=== PATIENT | female | born 1970 | race Caucasian/White ===

== ENCOUNTER 2018-02-14 09:31 | Outpatient (CLI) | payer BC ==
--- NOTE | 2018-02-14 13:10 | MMO ---
BILATERAL SCREENING MAMMOGRAM: Comparison: 01-04-14, 01-25-14, 01-06-15, 02-24-15 Technique: CC and MLO views of both breasts are submitted for interpretation. This study is interpret ed with the assistance of computer aided detection. FINDINGS: Breasts are comprised of extremely dense fibroglandular tissue which limits the sensitivity of mammog rossy in the detection of underlying malignancy. Bilaterally, no suspicious dominant mass, architectural distortion, or suspicious calcifications. Celestino ign appearing calcifications are noted bilaterally. IMPRESSION: BIRADS category 2 - benign findings. RECOMMENDATION: Annual mammogram. POS: [facility]
== END 2018-02-14 09:32 | disposition home or self-care (01) ==
LOC: SCSMAMMO 09:31
PROVIDERS: ATTEND Family Medicine
DX: Z12.31 Encounter for screening mammogram for malignant neoplasm of breast (principal)
CPT/HCPCS: 77067

== ENCOUNTER 2018-05-01 10:37 | Outpatient (CLI) | payer BC ==
--- NOTE | 2018-05-01 15:33 | CT ---
CT ABDOMEN AND PELVIS WITH CONTRAST: Multiple axial tomograms are obtained through the abdomen and pelvis with IV enhancement. INDICATION: Hernia. Palpable mass described by the patient. COMPARISON: There are no comparison studies. FINDINGS: Lung bases clear. The liver, spleen, pancreas unremarkable. Stomach and duodenum unremarkable. Adrenal glands normal. Kidneys unremarkable. There is a 1 cm cyst superior pole of the right kidney. Small bowel loops appear normal. Appendix appears normal. Contrast with stool seen throughout the c olon. The uterus is enlarged and very heterogeneous. There are several low attenuation mass-like areas wit hin the uterine fundus suggesting fibroids. The largest measures up to 4 cm diameter. Evidence of b ilateral tubal ligation. Aorta normal caliber. No adenopathy apparent. There is no evidence of anterior abdominal wall hernia identified. No anterior subcutaneous mass les ion identified. IMPRESSION: 1. Prominent stool throughout the colon suggests constipation. 2. Enlarged fibroid uterus. 3. No evidence of anterior abdominal wall hernia. POS: [facility]
== END 2018-05-01 10:38 | disposition home or self-care (01) ==
LOC: SCSCT 10:37
PROVIDERS: ATTEND Surgery
DX: K43.9 Ventral hernia without obstruction or gangrene (principal); D25.9 Leiomyoma of uterus, unspecified
CPT/HCPCS: 74177

== ENCOUNTER 2019-02-16 09:45 | Outpatient (CLI) | payer BC ==
--- NOTE | 2019-02-16 10:52 | MMO ---
Bilateral MAMMO Bilat Screen [facility]. CLINICAL HISTORY: Patient is 48 years old and is seen for screening. The patient has no family history of breast cancer. The patient has no personal history of cancer. VIEWS: The views performed were: bilateral craniocaudal with tomosynthesis and bilateral mediolateral oblique with tomosynthesis. FILMS COMPARED: The present examination has been compared to prior imaging studies performed at [facility] on 01/04/2014 and 02/14/2018, and at [facility] on 01/06/2015. This study has been interpreted with the assistance of computer-aided detection. MAMMOGRAM FINDINGS: The breasts are extremely dense, which may lower the sensitivity of mammography. Finding 1: There are stable benign appearing calcifications seen in both breasts. Finding 2: There is a stable mass seen in the sub-areolar region of the right breast. There are no suspicious masses, suspicious calcifications, or new areas of architectural distortion. IMPRESSION: THERE IS NO MAMMOGRAPHIC EVIDENCE OF MALIGNANCY. A ROUTINE FOLLOW-UP MAMMOGRAM IN 1 YEAR IS RECOMMENDED. THE RESULTS OF THIS EXAM WERE SENT TO THE PATIENT. ACR BI-RADS Category 2 - Benign finding MAMMOGRAPHY NOTE: 1. A negative mammogram report should not delay a biopsy if a dominant of clinically suspicious mass is present. 2. Approximately 10% to 15% of breast cancers are not detected by mammography. 3. Adenosis and dense breasts may obscure an underlying neoplasm. Reported by: EDMUND COBURN MD Electonically Signed: [id number]
== END 2019-02-16 09:46 | disposition home or self-care (01) ==
LOC: BICMAMMO 09:45
PROVIDERS: ATTEND Family Medicine
DX: Z12.31 Encounter for screening mammogram for malignant neoplasm of breast (principal)
CPT/HCPCS: 77063; 77067

== ENCOUNTER 2020-02-26 13:13 | Outpatient (CLI) | payer BC ==
--- NOTE | 2020-02-26 14:35 | ULT ---
EXAM: US Thyroid STANDARD PROVIDED CLINICAL HISTORY: Hyperparathyroidism COMPARISON: None FINDINGS: Right lobe of thyroid gland measures 4.4 cm x 1.7 cm x 1.3 cm. 0.9 cm circumscribed heterogeneous nodule is seen in the midportion right lobe of the thyroid gland. 0.6 cm circumscribed heterogeneous nodule inferior pole right lobe of thyroid gland. Left lobe of thyroid gland measures 4.4 cm x 1.6 cm x 1.4 cm. 1.3 cm circumscribed hypoechoic nodule superior pole left lobe of the thyroid gland 0.6 cm isoechoic circumscribed nodule midportion left lobe of thyroid gland 0.5 cm slightly heterogeneous but predominantly hypoechoic nodule midportion left lobe of thyroid gla nd 0.6 cm slightly hypoechoic nodule inferior pole left lobe of thyroid gland Thyroid isthmus measures 0.5 cm in AP dimensions which is mildly thickened IMPRESSION: TI RADS level 4-moderately suspicious nodules each lobe of the thyroid gland. According to ACR guidel fortino and based on size criteria, follow-up evaluation of the larger nodule in the left lobe of thyroid gland is recommended at one year. Remainder of the nodules are below size criteria for follow -up evaluation.
== END 2020-02-26 13:14 | disposition home or self-care (01) ==
LOC: SCSULT 13:13
PROVIDERS: ATTEND Internal Medicine Endocrinology, Diabetes & Metabolism
DX: E21.3 Hyperparathyroidism, unspecified (principal); E04.1 Nontoxic single thyroid nodule
CPT/HCPCS: 76536

== ENCOUNTER 2020-03-28 09:03 | Outpatient (CLI) | payer BC ==
--- NOTE | 2020-03-28 13:16 | NM ---
Radionucleotide parathyroid scan with SPECT imaging HISTORY: Hyperparathyroidism. FINDINGS: 25.3 mCi technetium 99m sestamibi. A focal area of increased radiotracer uptake is present immediately posterior to the superior pole of the left thyroid lobe. The corresponding CT images show a well-circumscribed oval low density nodule at this location that is 1.0 cm x 0.7 cm diameters on the axial images. It is posterior to the hyperdense left thyroid lobe superior pole. Slightly heterogeneous appearance of the thyroid gland correlates with the other small nodules described on re cent sonogram. No other abnormal areas radiotracer uptake are evident. IMPRESSION : Left superior parathyroid adenoma. This represents the homogeneous hypoechoic nodule described in thi s location on recent thyroid sonogram.
== END 2020-03-28 09:04 | disposition home or self-care (01) ==
LOC: NM 09:03
PROVIDERS: ATTEND Internal Medicine Endocrinology, Diabetes & Metabolism
DX: E05.90 Thyrotoxicosis, unspecified without thyrotoxic crisis or storm (principal); D35.1 Benign neoplasm of parathyroid gland; E04.2 Nontoxic multinodular goiter
CPT/HCPCS: 78072; A9500